=== PATIENT | male | born 1995 | race Caucasian/White ===

== ENCOUNTER 2020-04-24 08:15 | Emergency (ER) | payer OTHER ==
[~2020-04-24] VITALS: Ht 182.9 cm; Wt 83.9 kg
[2020-04-24 09:13] VITALS: BP 147/90
== END 2020-04-24 09:13 | disposition home or self-care (01) ==
LOC: M.ERS 08:15
DX: M79.645 Pain in left finger(s) (principal); F17.210 Nicotine dependence, cigarettes, uncomplicated